=== PATIENT | female | born 1940 | race Hispanic/Latino ===

== ENCOUNTER 2017-11-03 03:05 | Emergency (ER) | payer MEDICARE ==
[2017-11-03 03:52] LABS: ALT (SGPT) 18 U/L (8-55); AST (SGOT) 21 U/L (5-34); Albumin 4.2 g/dL (3.4-4.8); Alkaline Phosphatase 74 U/L (40-150); Anion Gap 12 mmol/L (10-20); BUN (Urea Nitrogen) 16 mg/dL (9.8-20.1); Bilirubin, Total 0.9 mg/dL (0.2-1.2); Calc. Creatinine Clearance 0 mL/min (70-130); Calcium 9.7 mg/dL (7.8-10.44); Carbon Dioxide 26 mmol/L (23-31); Chloride 105 mmol/L (98-107); Estimated GFR-MDRD 61; Globulin 4.1 g/dL (2.4-3.5); Glucose 133 mg/dL (83-110); Lipase 40 U/L (8-78); Potassium 4.1 mmol/L (3.5-5.1); Protein, Total 8.3 g/dL (6.0-8.3); Sodium 139 mmol/L (136-145)
[2017-11-03 04:06] LABS: Band 1 % (5-11); Eosinophils 6 % (0-10); Hemoglobin 13.9 g/dL (12.0-16.0); Lymphocytes 58 % (21-51); MDiff Complete? YES; Mean Corpuscular HGB CONC 36.2 g/dL (32.0-36.0); Mean Corpuscular Hemoglobin 32.8 pg (27.0-31.0); Mean Corpuscular Volume 90.7 fL (78.0-98.0); Mean Platelet Volume 7.2 fL (7.4-10.4); Monocytes 4 % (0-10); Neutrophil 30 % (42-75); PLT Morphology Comment Appears Adequate; Platelet Count 248 thou/uL (130-400); RBC Distribution Width 12.3 % (11.5-14.5); Red Blood Cell (RBC) Count 4.23 mill/uL (4.20-5.40); White Blood Cell (WBC) Count 7.4 thou/uL (4.8-10.8)
[2017-11-03 06:30] LABS: Bilirubin Negative (Negative); Blood, Urine Negative (Negative); Clarity CLEAR (Clear); Glucose, Urine (Dipstick) Negative (Negative); Leukocyte Trace (Negative); Nitrite Negative (Negative); Protein, Urine (Dipstick) Negative (Neg-Trace); Specific Gravity, Urine 1.027 (1.002-1.036); Urobilinogen 0.2 mg/dL (0.2-1.0)
[2017-11-03 06:33] LABS: Bacteria/HPF None Seen HPF (None Seen); Hyaline Casts/LPF 4-6 HYALINE CAST LPF (0-3 Hyaline); Pathc Cast-AUWi Flag 0.58 (0-2.49); Squamous Epithelial 0-3 HPF (0-3)
[2017-11-03] MEDS ORDERED: Bisacodyl 10 MG SUPP ONE (07:15)
--- NOTE | 2017-11-03 09:56 | RAD ---
RADIOGRAPH CHEST 1 VIEW RADIOGRAPH ABDOMEN 2 VIEWS: HISTORY: A 77-year-old female with acute lower abdominal pain. FINDINGS: There are no air space densities or pulmonary edema. The lateral costophrenic angles are sharp. There is no cardiomegaly. There is no evidence of pneumothorax or pneumoperitoneum. There is no evidence of dilated small bowel loops, differential air/fluid levels, or organomegaly. There are multiple surgical clips in the right upper quadrant of the abdomen. IMPRESSION: 1) No acute cardiopulmonary findings. 2) No evidence of bowel obstruction. 3) Status post cholecystectomy. suly [] POS: [facility]IN
== END 2017-11-03 07:29 | disposition home or self-care (01) ==
LOC: ERS 03:05
DX: K59.00 Constipation, unspecified (principal)
CPT/HCPCS: 36415; 74022; 80053; 81003; 81015; 83690; 85025; 99284

== ENCOUNTER 2022-03-08 08:26 | Emergency (ER) | payer MEDICARE | END 2022-03-08 10:42 | disposition left against medical advice (07) | LOC: ERS 08:26 | DX: Z53.21 Procedure and treatment not carried out due to patient leaving prior to being seen by health care provider (principal) ==

== ENCOUNTER 2023-09-22 20:36 | Emergency (ER) | payer MEDICARE ==
[2023-09-22] MEDS ORDERED: HYDROcodone/Acetaminophen 5/325 mg Tablet ONE (22:03)
== END 2023-09-22 22:08 | disposition home or self-care (01) ==
LOC: ERS 20:36
DX: K02.9 Dental caries, unspecified (principal); K04.7 Periapical abscess without sinus
CPT/HCPCS: 99282

== ENCOUNTER 2023-09-23 09:12 | Emergency (ER) | payer MEDICARE ==
[2023-09-23 10:03] LABS: #Basophils 0.05 10x3/uL (0.0-0.2); %Basophils 0.6 % (0.0-1.0); %Eosinophils 1.2 % (0.0-10.0); %Lymphocytes 17.8 % (21.0-51.0); %Monocytes 6.8 % (0.0-10.0); %Neutrophils 73.3 % (42.0-75.0); Hematocrit 35.5 % (36.0-47.0); Hemoglobin 12.1 g/dL (12.0-16.0); Mean Corpuscular HGB CONC 34.1 g/dL (32.0-36.0); Mean Corpuscular Hemoglobin 30.2 pg (27.0-31.0); Mean Corpuscular Volume 88.5 fL (78.0-98.0); Mean Platelet Volume 10.3 fL (7.4-10.4); Platelet Count 237 10x3/uL (130-400); RBC Distribution Width 13.2 % (11.5-14.5); Red Blood Cell (RBC) Count 4.01 mill/uL (4.20-5.40)
[2023-09-23 10:14] LABS: ALT (SGPT) 30 U/L (8-55); AST (SGOT) 51 U/L (5-34); Albumin 3.5 g/dL (3.4-4.8); Alkaline Phosphatase 81 U/L (40-110); Anion Gap 16 mmol/L (10-20); BUN (Urea Nitrogen) 17 mg/dL (9.8-20.1); Calc. Creatinine Clearance 0 mL/min (70-130); Calcium 9.3 mg/dL (7.8-10.44); Carbon Dioxide 25 mmol/L (23-31); Chloride 105 mmol/L (98-107); Estimated GFR 69; Glucose 118 mg/dL (83-110); Lipase 56 U/L (8-78); Potassium 4.8 mmol/L (3.5-5.1); Protein, Total 7.5 g/dL (5.8-8.1); Sodium 141 mmol/L (136-145)
[2023-09-23] MEDS ORDERED: Ondansetron PF 4 MG/2 ML Vial ONE (10:32)
[2023-09-23] MEDS ORDERED: Aspirin Chewable 81 MG TAB ONE (10:32)
[2023-09-23 10:38] LABS: Troponin I Less than 0.010 ng/mL (< 0.028)
[2023-09-23 13:19] LABS: Troponin I Less than 0.010 ng/mL (< 0.028)
== END 2023-09-23 13:54 | disposition home or self-care (01) ==
LOC: ERS 09:12
DX: R07.9 Chest pain, unspecified (principal); K04.7 Periapical abscess without sinus
CPT/HCPCS: 71045; 80053; 83690; 84484 ×2; 85025; 93005; 94760; J2405; 36415; 96374